=== PATIENT | male | born 1965 | race Caucasian/White ===

== ENCOUNTER 2022-10-04 10:53 | Emergency (ER) | payer BC ==
[~2022-10-04] VITALS: Ht 175.3 cm; Wt 81.8 kg
[2022-10-04 12:00] LABS: BASOPHILS % (AUTO) 0.3 % (0-1); EOSINOPHILS # (AUTO) 0.1 X10'3 (0-0.9); EOSINOPHILS % (AUTO) 1.4 % (0-6); HEMATOCRIT 47.8 % (42.0-52.0); HEMOGLOBIN 16.4 g/dl (14.0-17.9); LYMPHOCYTES # (AUTO) 1.1 X10'3 (1.1-4.8); LYMPHOCYTES % (AUTO) 10.8 % (21-51); MEAN CORPUSCULAR HEMOGLOBIN 32.6 PG (27.0-31.0); MEAN CORPUSCULAR HGB CONC 34.4 g/dL (33.0-36.5); MEAN PLATELET VOLUME 8.2 FL (7.4-10.4); MONOCYTES # (AUTO) 0.6 X10'3 (0-0.9); MONOCYTES % (AUTO) 5.9 % (2-12); NEUTROPHILS # (AUTO) 8.2 X10'3 (1.8-7.7); NEUTROPHILS % (AUTO) 81.6 % (42-75); PLATELET COUNT 184 X10'3 (140-440); RED BLOOD COUNT 5.03 X10'6 (4.70-6.10); RED CELL DISTRIBUTION WIDTH 13.8 % (11.5-14.5)
[2022-10-04] MEDS ORDERED: amox tr/potassium clavulanate 875/125mg TAB PO ONE (12:20)
[2022-10-04 12:24] LABS: ALANINE AMINOTRANSFERASE 31 U/L (12-78); ALBUMIN 3.5 G/DL (3.4-5.0); ALKALINE PHOSPHATASE 52 IU/L (46-116); ANION GAP 9 (8-16); ASPARTATE AMINO TRANSFERASE 18 U/L (10-37); BILIRUBIN,TOTAL 1.2 MG/DL (0.1-1.0); BLOOD UREA NITROGEN 9 MG/DL (7-18); BUN/CREATININE RATIO 10.8 (5.4-32.0); CALCIUM 8.9 MG/DL (8.5-10.1); CHLORIDE 100 MMOL/L (99-107); CREATININE 0.83 MG/DL (0.60-1.10); GLUCOSE 117 MG/DL (70-104); LIPASE 56 U/L (73-393); POTASSIUM 3.9 MMOL/L (3.5-5.1); SODIUM 133 MMOL/L (135-145); TOTAL CARBON DIOXIDE 23.9 MMOL/L (24-32); TOTAL PROTEIN 7.1 G/DL (6.4-8.2); eGFR > 90 ML/MIN
[2022-10-04] MEDS ORDERED: AMOX-580 PO (12:34)
[2022-10-04] MEDS ORDERED: DICY10CA88 PO (12:34)
[2022-10-04 12:54] VITALS: BP 135/99
== END 2022-10-04 13:10 | disposition home or self-care (01) ==
LOC: ER 10:54
DX: K57.92 Diverticulitis of intestine, part unspecified, without perforation or abscess without bleeding (principal)
CPT/HCPCS: 36415; 80053; 83690; 84145; 85025; 99283

== ENCOUNTER 2023-03-23 15:15 | Inpatient (IN) | payer BC ==
[~2023-03-23] VITALS: Ht 175.3 cm; Wt 82.6 kg
[2023-03-23] MEDS ORDERED: normal saline 1000ml 1,000 ML IV ONE ×2 (16:25→17:00)
[2023-03-23 16:39] LABS: BASOPHILS % (AUTO) 0.6 % (0-1); EOSINOPHILS % (AUTO) 0 % (0-6); HEMATOCRIT 49.9 % (42.0-52.0); HEMOGLOBIN 16.9 g/dl (14.0-17.9); LYMPHOCYTES # (AUTO) 1.2 X10'3 (1.1-4.8); LYMPHOCYTES % (AUTO) 21.3 % (21-51); MEAN CORPUSCULAR HEMOGLOBIN 31.9 PG (27.0-31.0); MEAN CORPUSCULAR HGB CONC 33.9 g/dL (33.0-36.5); MEAN CORPUSCULAR VOLUME 94.2 FL (78-98); MEAN PLATELET VOLUME 8.5 FL (7.4-10.4); MONOCYTES # (AUTO) 0.1 X10'3 (0-0.9); MONOCYTES % (AUTO) 2.2 % (2-12); NEUTROPHILS # (AUTO) 4.1 X10'3 (1.8-7.7); NEUTROPHILS % (AUTO) 75.9 % (42-75); PLATELET COUNT 208 X10'3 (140-440); RED CELL DISTRIBUTION WIDTH 12.2 % (11.5-14.5); WHITE BLOOD COUNT 5.4 X10'3 (4.5-11.0)
[2023-03-23 16:55] LABS: ALANINE AMINOTRANSFERASE 25 U/L (12-78); ALBUMIN 3.6 G/DL (3.4-5.0); ALKALINE PHOSPHATASE 50 IU/L (46-116); ANION GAP 17 (8-16); ASPARTATE AMINO TRANSFERASE 26 U/L (10-37); BILIRUBIN,TOTAL 0.4 MG/DL (0.1-1.0); BLOOD UREA NITROGEN 16 MG/DL (7-18); BUN/CREATININE RATIO 13.2 (10.0-20.0); CALCIUM 8.6 MG/DL (8.5-10.1); CHLORIDE 100 MMOL/L (99-107); CREATININE 1.21 MG/DL (0.60-1.10); GLUCOSE 155 MG/DL (70-104); LIPASE 76 U/L (73-393); POTASSIUM 4.3 MMOL/L (3.5-5.1); SODIUM 138 MMOL/L (135-145); TOTAL CARBON DIOXIDE 20.7 MMOL/L (24-32); TOTAL PROTEIN 7.1 G/DL (6.4-8.2); eGFR 62 ML/MIN
[2023-03-23] MEDS ORDERED: piperacillin/tazo 3.375gm/50ml 50 ML IV ONE (17:50)
[2023-03-23] MEDS ORDERED: ondansetron/PF 4mg/2ml inj IV ONE (18:05)
[2023-03-23] MEDS ORDERED: morphine 4 MG/ML inj SYRINge IV ONE (18:05)
[2023-03-23] MEDS ORDERED: ALBUTEROL (19:08)
[2023-03-23] MEDS ORDERED: DICY10CA88 PO (19:08)
[2023-03-23] MEDS ORDERED: LOSA50TA64 PO (19:08)
[2023-03-23] MEDS ORDERED: magnesium 2GM in 50ml NS 50 ML IV PRN (19:15)
[2023-03-23] MEDS ORDERED: magnesium 4gm in 100ml NS 100 ML IV PRN (19:15)
[2023-03-23] MEDS ORDERED: morphine 2 MG/ML inj. syringe IV PRN (19:15)
[2023-03-23] MEDS ORDERED: potassium Cl 40MEQ/1/2NS 520ml 520 ML IV PRN (19:15)
[2023-03-23] MEDS ORDERED: acetaminophen 325mg tablet PO PRN (19:15)
[2023-03-23] MEDS ORDERED: ondansetron/PF 4mg/2ml inj IV PRN (19:15)
[2023-03-23] MEDS ORDERED: ALBU17AE26 PO (19:40)
[2023-03-23] MEDS: normal saline 1000ml 1,000 ML IV SCH (19:46)
[2023-03-23] MEDS: K and/or MAG REPLACEMENT MC SCH (19:46)
--- NOTE | 2023-03-23 21:35 | NUR ---
Patient in room ED 13. I have received report from CARLOS A BINGHAM and had the opportunity to ask questions and assume patient care.
--- NOTE | 2023-03-23 21:52 | NUR ---
REPORT CALLED TO FLOOR PT TX TO ROOM 3008 BY NURSE
[2023-03-23] MEDS: morphine 2 MG/ML inj. syringe IV PRN (22:05)
[2023-03-23 22:16] LABS: CLARITY,URINE SLIGHTLY CLOUDY (Clear); COLOR,URINE YELLOW (Yellow); GLUCOSE, URINE NEGATIVE (Neg); KETONES,URINE 15 mg/dl (Neg); LEUKOCYTE ESTERASE ,URINE NEGATIVE (Neg); NITRITES, URINE NEGATIVE (Neg); OCCULT BLOOD,URINE NEGATIVE (Neg); PH,URINE 5.5 (4.8-8.0); PROTEIN,URINE TRACE mg/dl (Neg); UROBILINOGEN,URINE 0.2 E.U/dL (0.2-1.0)
[2023-03-23 22:39] LABS: UA COLLECTION TYPE URINAL
[2023-03-23 22:40] VITALS: BP 120/81
[2023-03-23 22:40] LABS: AMORPHOUS URATES 2+; BACTERIA,URINE NONE SEEN /HPF (Neg); MUCUS STRANDS MODERATE /LPF (Neg); RBC,URINE NONE SEEN /HPF (0-2); SQUAMOUS EPITHELIAL CELL,UR FEW /LPF (FEW); WBC,URINE 0-4 /HPF (0-4)
[2023-03-24] MEDS: piperacillin/tazo 3.375gm/50ml 50 ML IV SCH ×3 (01:19→16:46)
[2023-03-24 02:47] VITALS: BP 115/82
[2023-03-24] MEDS: morphine 2 MG/ML inj. syringe IV PRN ×4 (04:26→20:28)
[2023-03-24] MEDS: normal saline 1000ml 1,000 ML IV SCH ×2 (04:27→16:46)
[2023-03-24 06:00] VITALS: BP 122/80
[2023-03-24 06:11] LABS: BASOPHILS % (AUTO) 0.1 % (0-1); EOSINOPHILS % (AUTO) 0 % (0-6); HEMOGLOBIN 15.4 g/dl (14.0-17.9); LYMPHOCYTES # (AUTO) 0.5 X10'3 (1.1-4.8); MEAN PLATELET VOLUME 9.2 FL (7.4-10.4); NEUTROPHILS # (AUTO) 4.9 X10'3 (1.8-7.7); PLATELET COUNT 129 X10'3 (140-440); WHITE BLOOD COUNT 5.7 X10'3 (4.5-11.0)
[2023-03-24 06:14] LABS: LYMPHOCYTES % (AUTO) 9.3 % (21-51); MEAN CORPUSCULAR HEMOGLOBIN 32.7 PG (27.0-31.0); MEAN CORPUSCULAR HGB CONC 34.3 g/dL (33.0-36.5); MEAN CORPUSCULAR VOLUME 95.5 FL (78-98); MONOCYTES # (AUTO) 0.3 X10'3 (0-0.9); MONOCYTES % (AUTO) 4.8 % (2-12); NEUTROPHILS % (AUTO) 85.8 % (42-75); RED BLOOD COUNT 4.72 X10'6 (4.70-6.10)
--- NOTE | 2023-03-24 06:23 | NUR ---
Problems reprioritized. Patient report given, questions answered & plan of care reviewed with JIMENA SALAS.
[2023-03-24 06:26] LABS: ALANINE AMINOTRANSFERASE 20 U/L (12-78); ALBUMIN 2.9 G/DL (3.4-5.0); ALBUMIN/GLOBULIN RATIO 0.9 (1.1-1.5); ALKALINE PHOSPHATASE 30 IU/L (46-116); ANION GAP 13 (8-16); ASPARTATE AMINO TRANSFERASE 22 U/L (10-37); BILIRUBIN,TOTAL 0.5 MG/DL (0.1-1.0); BLOOD UREA NITROGEN 17 MG/DL (7-18); BUN/CREATININE RATIO 12.8 (10.0-20.0); CALCIUM 7.7 MG/DL (8.5-10.1); CHLORIDE 103 MMOL/L (99-107); CREATININE 1.33 MG/DL (0.60-1.10); GLUCOSE 115 MG/DL (70-104); MAGNESIUM 1.2 MG/DL (1.5-2.4); POTASSIUM 4.5 MMOL/L (3.5-5.1); SODIUM 139 MMOL/L (135-145); TOTAL CARBON DIOXIDE 23.5 MMOL/L (24-32); eGFR 55 ML/MIN
--- NOTE | 2023-03-24 06:33 | NUR ---
Patient in room PCU 3008. I have received report from Emily and had the opportunity to ask questions and assume patient care.
[2023-03-24] MEDS: K and/or MAG REPLACEMENT MC SCH ×2 (08:00→20:00)
[2023-03-24 11:00] VITALS: BP 135/73
--- NOTE | 2023-03-24 14:35 | NUR ---
Re: [place] in 3008, pt requesting respiratory tx, please advise Mackenzie
[2023-03-24 15:12] VITALS: BP 131/87
[2023-03-24 18:00] VITALS: BP 119/81
--- NOTE | 2023-03-24 18:02 | NUR ---
Problems reprioritized. Patient report given, questions answered & plan of care reviewed with Marco Ferreira
[2023-03-24] MEDS: heparin, porcine 5000 units/ml vial SQ SCH (19:24)
[2023-03-25 02:00] VITALS: BP 147/95
[2023-03-25] MEDS: piperacillin/tazo 3.375gm/50ml 50 ML IV SCH ×3 (03:00→17:41)
--- NOTE | 2023-03-25 05:38 | NUR ---
AGREE WITH IP PARALEGAL ASSESSMENTS
[2023-03-25 06:16] LABS: BASOPHILS % (AUTO) 0.2 % (0-1); EOSINOPHILS % (AUTO) 0 % (0-6); HEMATOCRIT 40.3 % (42.0-52.0); HEMOGLOBIN 13.6 g/dl (14.0-17.9); LYMPHOCYTES # (AUTO) 0.5 X10'3 (1.1-4.8); LYMPHOCYTES % (AUTO) 6.6 % (21-51); MEAN CORPUSCULAR HGB CONC 33.7 g/dL (33.0-36.5); MEAN CORPUSCULAR VOLUME 94.8 FL (78-98); MEAN PLATELET VOLUME 9.2 FL (7.4-10.4); MONOCYTES # (AUTO) 0.2 X10'3 (0-0.9); MONOCYTES % (AUTO) 2.8 % (2-12); NEUTROPHILS # (AUTO) 7.2 X10'3 (1.8-7.7); NEUTROPHILS % (AUTO) 90.4 % (42-75); PLATELET COUNT 115 X10'3 (140-440); RED BLOOD COUNT 4.25 X10'6 (4.70-6.10); RED CELL DISTRIBUTION WIDTH 11.9 % (11.5-14.5); WHITE BLOOD COUNT 7.9 X10'3 (4.5-11.0)
[2023-03-25 06:25] LABS: ALANINE AMINOTRANSFERASE 18 U/L (12-78); ALBUMIN 2.5 G/DL (3.4-5.0); ALBUMIN/GLOBULIN RATIO 0.8 (1.1-1.5); ALKALINE PHOSPHATASE 31 IU/L (46-116); ANION GAP 9 (8-16); ASPARTATE AMINO TRANSFERASE 27 U/L (10-37); BILIRUBIN,TOTAL 0.4 MG/DL (0.1-1.0); BLOOD UREA NITROGEN 16 MG/DL (7-18); BUN/CREATININE RATIO 16.5 (10.0-20.0); CALCIUM 8.2 MG/DL (8.5-10.1); CHLORIDE 103 MMOL/L (99-107); CREATININE 0.97 MG/DL (0.60-1.10); GLUCOSE 129 MG/DL (70-104); MAGNESIUM 1.9 MG/DL (1.5-2.4); POTASSIUM 4.2 MMOL/L (3.5-5.1); SODIUM 135 MMOL/L (135-145); TOTAL PROTEIN 5.8 G/DL (6.4-8.2); eGFR 79 ML/MIN
[2023-03-25 07:28] VITALS: BP 141/89
[2023-03-25] MEDS: K and/or MAG REPLACEMENT MC SCH ×2 (08:00→20:00)
[2023-03-25] MEDS: heparin, porcine 5000 units/ml vial SQ SCH ×3 (09:17→19:39)
[2023-03-25] MEDS: normal saline 1000ml 1,000 ML IV SCH ×3 (09:35→21:15)
[2023-03-25] MEDS: morphine 2 MG/ML inj. syringe IV PRN ×2 (09:35→23:28)
[2023-03-25 11:00] VITALS: BP 142/93
[2023-03-25 15:00] VITALS: BP 131/86
[2023-03-25 18:00] VITALS: BP 143/101
--- NOTE | 2023-03-25 18:42 | NUR ---
Gave report to Anahy SALAS.
--- NOTE | 2023-03-25 18:42 | NUR ---
Gave report to Marco SALAS.
--- NOTE | 2023-03-25 21:40 | NUR ---
NS NOT NEEDED D/T CHF AND SALINE LOCK FOR NOW.
[2023-03-26] VITALS (7 sets, daily range): BP systolic 130–176; BP diastolic 77–108
[2023-03-26] MEDS: piperacillin/tazo 3.375gm/50ml 50 ML IV SCH ×3 (01:46→17:16)
[2023-03-26] MEDS: normal saline 1000ml 1,000 ML IV SCH (07:15)
[2023-03-26 07:19] LABS: BASOPHILS % (AUTO) 0.1 % (0-1); EOSINOPHILS % (AUTO) 0 % (0-6); HEMATOCRIT 39.5 % (42.0-52.0); HEMOGLOBIN 13.5 g/dl (14.0-17.9); LYMPHOCYTES # (AUTO) 0.4 X10'3 (1.1-4.8); LYMPHOCYTES % (AUTO) 8.1 % (21-51); MEAN CORPUSCULAR HEMOGLOBIN 32.2 PG (27.0-31.0); MEAN CORPUSCULAR HGB CONC 34.1 g/dL (33.0-36.5); MEAN CORPUSCULAR VOLUME 94.4 FL (78-98); MEAN PLATELET VOLUME 9.7 FL (7.4-10.4); MONOCYTES # (AUTO) 0.3 X10'3 (0-0.9); MONOCYTES % (AUTO) 5.9 % (2-12); NEUTROPHILS # (AUTO) 4.3 X10'3 (1.8-7.7); NEUTROPHILS % (AUTO) 85.9 % (42-75); PLATELET COUNT 138 X10'3 (140-440); RED BLOOD COUNT 4.19 X10'6 (4.70-6.10); RED CELL DISTRIBUTION WIDTH 11.8 % (11.5-14.5)
[2023-03-26 07:37] LABS: ALANINE AMINOTRANSFERASE 19 U/L (12-78); ALBUMIN 2.1 G/DL (3.4-5.0); ALBUMIN/GLOBULIN RATIO 0.6 (1.1-1.5); ALKALINE PHOSPHATASE 30 IU/L (46-116); ANION GAP 12 (8-16); ASPARTATE AMINO TRANSFERASE 26 U/L (10-37); BILIRUBIN,TOTAL 0.6 MG/DL (0.1-1.0); BLOOD UREA NITROGEN 13 MG/DL (7-18); BUN/CREATININE RATIO 15.9 (10.0-20.0); CALCIUM 8.1 MG/DL (8.5-10.1); CHLORIDE 101 MMOL/L (99-107); CREATININE 0.82 MG/DL (0.60-1.10); GLUCOSE 135 MG/DL (70-104); MAGNESIUM 1.7 MG/DL (1.5-2.4); POTASSIUM 3.5 MMOL/L (3.5-5.1); SODIUM 133 MMOL/L (135-145); TOTAL PROTEIN 5.8 G/DL (6.4-8.2); eGFR > 90 ML/MIN
[2023-03-26] MEDS: K and/or MAG REPLACEMENT MC SCH ×2 (08:00→20:00)
[2023-03-26] MEDS: heparin, porcine 5000 units/ml vial SQ SCH ×2 (08:00→20:04)
--- NOTE | 2023-03-26 11:02 | NUR ---
Per pt. told him to remove monitoring manager and that he didnt need it. Paged to clarify. PAGER ID: [phone] MESSAGE: To Dr. Malave - Can you please call me? Several questions different pts. Dian [id number]
[2023-03-26] MEDS ORDERED: LEVO-65 PO (12:26)
[2023-03-26] MEDS ORDERED: METR-159 PO (12:26)
--- NOTE | 2023-03-26 15:05 | NUR ---
PAGER ID: [phone] MESSAGE: Sergio Mejiasae [id number] Pt. BP 170/108 HR 85. Rechecked. Continue home Losartan? 50mg? PRN hydralazine? Pt. also wants something to sleep tonight- takes advil PM at home. This will make him happy. Dian 1957
[2023-03-26] MEDS ORDERED: LOSA25TA96 PO (15:28)
[2023-03-26] MEDS: losartan 50mg tablet PO SCH (15:55)
--- NOTE | 2023-03-26 17:23 | NUR ---
promotional table spacer promotional table spacer PAGER ID: [phone] MESSAGE: Sergio Mejiasae 3008 BP 170/101 hr 85 Losartan med already given. Pt. also wants Malox order. Please advise. Dian [id number]
[2023-03-26] MEDS: hydrALAZINE 20mg/ml inj. IV PRN ×2 (17:39→20:03)
--- NOTE | 2023-03-26 19:04 | NUR ---
Report given to Ava SALAS.
[2023-03-26] MEDS ORDERED: calcium carbonate 500mg chew tablet PO PRN (20:15)
[2023-03-26] MEDS ORDERED: Melatonin 3mg tablet PO SCH (21:00)
[2023-03-27] MEDS: piperacillin/tazo 3.375gm/50ml 50 ML IV SCH ×2 (01:23→08:37)
[2023-03-27 03:00] VITALS: BP 171/104
[2023-03-27] MEDS: hydrALAZINE 20mg/ml inj. IV PRN ×2 (03:34→08:37)
[2023-03-27] MEDS: calcium carbonate 500mg chew tablet PO PRN ×2 (03:35→11:12)
--- NOTE | 2023-03-27 06:24 | NUR ---
Patient report given, questions answered & plan of care reviewed with MARITZA Menendez
[2023-03-27 06:59] LABS: BASOPHILS % (AUTO) 0 % (0-1); EOSINOPHILS % (AUTO) 0 % (0-6); HEMATOCRIT 39.6 % (42.0-52.0); HEMOGLOBIN 13.7 g/dl (14.0-17.9); LYMPHOCYTES # (AUTO) 0.5 X10'3 (1.1-4.8); LYMPHOCYTES % (AUTO) 8.1 % (21-51); MEAN CORPUSCULAR HEMOGLOBIN 32.3 PG (27.0-31.0); MEAN CORPUSCULAR HGB CONC 34.6 g/dL (33.0-36.5); MEAN CORPUSCULAR VOLUME 93.4 FL (78-98); MEAN PLATELET VOLUME 9.5 FL (7.4-10.4); MONOCYTES # (AUTO) 0.4 X10'3 (0-0.9); MONOCYTES % (AUTO) 6.5 % (2-12); NEUTROPHILS # (AUTO) 5.8 X10'3 (1.8-7.7); NEUTROPHILS % (AUTO) 85.4 % (42-75); PLATELET COUNT 143 X10'3 (140-440); RED BLOOD COUNT 4.24 X10'6 (4.70-6.10); RED CELL DISTRIBUTION WIDTH 11.9 % (11.5-14.5); WHITE BLOOD COUNT 6.8 X10'3 (4.5-11.0)
[2023-03-27 07:12] LABS: ALANINE AMINOTRANSFERASE 23 U/L (12-78); ALBUMIN/GLOBULIN RATIO 0.5 (1.1-1.5); ALKALINE PHOSPHATASE 45 IU/L (46-116); ANION GAP 9 (8-16); ASPARTATE AMINO TRANSFERASE 31 U/L (10-37); BILIRUBIN,TOTAL 0.6 MG/DL (0.1-1.0); BLOOD UREA NITROGEN 11 MG/DL (7-18); BUN/CREATININE RATIO 15.3 (10.0-20.0); CALCIUM 8.6 MG/DL (8.5-10.1); CHLORIDE 101 MMOL/L (99-107); CREATININE 0.72 MG/DL (0.60-1.10); GLUCOSE 109 MG/DL (70-104); MAGNESIUM 1.6 MG/DL (1.5-2.4); POTASSIUM 3.3 MMOL/L (3.5-5.1); SODIUM 135 MMOL/L (135-145); TOTAL CARBON DIOXIDE 24.6 MMOL/L (24-32); TOTAL PROTEIN 5.8 G/DL (6.4-8.2); eGFR > 90 ML/MIN
[2023-03-27] MEDS: losartan 50mg tablet PO SCH (08:36)
[2023-03-27 08:37] VITALS: BP_SYST 170
[2023-03-27] MEDS: heparin, porcine 5000 units/ml vial SQ SCH (08:37)
[2023-03-27] MEDS ORDERED: potassium Cl 20 mEq SR tablet PO STA (10:42)
--- NOTE | 2023-03-27 14:57 | NUR ---
Pt stable for discharge per Dr. Malave and Eve. All discharge instructions reviewed with patient and all questions answered, pt verbalized understanding. New meds e-scripted to [facility] on [place]. PIV discontinued, cannula intact. Tele discontinued. All belongings collected and sent with patient. Wheeled to lobby via nursing staff and picked up by spouse.
== END 2023-03-27 13:13 | disposition home or self-care (01) | DRG 391 ==
LOC: ER 15:15 → ED HOLD 19:15 → PCU 3S 21:45
PROVIDERS: ADMIT Internal Medicine; ATTEND Internal Medicine
DX: K57.20 Diverticulitis of large intestine with perforation and abscess without bleeding (principal); U07.1 COVID-19; I10 Essential (primary) hypertension; Z79.899 Other long term (current) drug therapy
CPT/HCPCS: 36415; 71045; 74176; 80053; 81001; 83605; 83690; 83735; 84145; 85025; 87040; 87081; 87811; 99285; G0378; J0360; J1644; J2270; J2405; J2543; J3475; J7030; J7040

== ENCOUNTER 2023-09-03 05:17 | Inpatient (IN) | payer BC ==
[2023-08-27 15:36] LABS: BILIRUBIN,URINE NEGATIVE (Neg); CLARITY,URINE CLEAR (Clear); COLOR,URINE YELLOW (Yellow); GLUCOSE, URINE NEGATIVE (Neg); KETONES,URINE NEGATIVE (Neg); LEUKOCYTE ESTERASE ,URINE NEGATIVE (Neg); NITRITES, URINE NEGATIVE (Neg); OCCULT BLOOD,URINE NEGATIVE (Neg); PH,URINE 6.5 (4.8-8.0); PROTEIN,URINE NEGATIVE (Neg); UROBILINOGEN,URINE 0.2 E.U/dL (0.2-1.0)
[2023-08-27 15:39] LABS: BASOPHILS % (AUTO) 0.4 % (0-1); EOSINOPHILS # (AUTO) 0.1 X10'3 (0-0.9); EOSINOPHILS % (AUTO) 1.1 % (0-6); LYMPHOCYTES # (AUTO) 1.5 X10'3 (1.1-4.8); LYMPHOCYTES % (AUTO) 19.5 % (21-51); MEAN CORPUSCULAR HEMOGLOBIN 29.3 PG (27.0-31.0); MEAN CORPUSCULAR HGB CONC 33.6 g/dL (33.0-36.5); MEAN CORPUSCULAR VOLUME 87.2 FL (78-98); MEAN PLATELET VOLUME 8.7 FL (7.4-10.4); MONOCYTES # (AUTO) 0.4 X10'3 (0-0.9); MONOCYTES % (AUTO) 5.7 % (2-12); NEUTROPHILS # (AUTO) 5.8 X10'3 (1.8-7.7); NEUTROPHILS % (AUTO) 73.3 % (42-75); PRE OP HEMOGLOBIN 14.1 g/dL (14.0-17.9); PRE OP PLATELET COUNT 206 X10'3 (140-440); PRE OP WHITE BLOOD COUNT 7.9 10'3 (4.8-10.8); RED BLOOD COUNT 4.82 X10'6 (4.70-6.10); RED CELL DISTRIBUTION WIDTH 15.4 % (11.5-14.5)
[2023-08-27 15:41] LABS: UA COLLECTION TYPE CLN CATCH MIDSTREAM
[2023-08-27 15:48] LABS: BLOOD UREA NITROGEN 13 MG/DL (7-18); BUN/CREATININE RATIO 12.4 (10.0-20.0); CALCIUM 9.1 MG/DL (8.5-10.1); CHLORIDE 100 MMOL/L (99-107); CREATININE 1.05 MG/DL (0.60-1.10); PRE OP ANION GAP 7 (8-16); PRE OP BILIRUB, TOTAL 0.5 MG/DL (0.0-1.0); PRE OP GLUCOSE 104 MG/DL (70-104); PRE OP POTASSIUM 3.9 MMOL/L (3.4-5.1); PRE OP SODIUM 137 MMOL/L (135-145); TOTAL CARBON DIOXIDE 29.8 MMOL/L (24-32); eGFR 72 ML/MIN
[2023-08-27 15:49] LABS: ALBUMIN 3.7 G/DL (3.4-5.0); ALBUMIN/GLOBULIN RATIO 1.1 (1.1-1.5); ALKALINE PHOSPHATASE 58 IU/L (46-116); PRE OP ALT 18 U/L (30-65); PRE OP AST 16 U/L (10-37); TOTAL PROTEIN 7.2 G/DL (6.4-8.2)
[~2023-09-03] VITALS: Ht 175.3 cm; Wt 86.2 kg
[2023-09-03] VITALS (31 sets, daily range): BP systolic 125–161; BP diastolic 77–113; PULSE 77–110; RESP 14–23; TEMP 97.4–98.3; O2SAT 95–100
[~2023-09-03 05:17] MED LIST: LOSA50TA64 PO; MULT-1085 PO; TRACE MINERAL; ringers solution, lacted 1,000 ML IV SCH
[2023-09-03] MEDS ORDERED: famotidine 20mg tablet PO ONE (05:30)
[2023-09-03] MEDS ORDERED: ceFOXitin 2GM-NS 100mL ADDvant 100 ML IV ONE (05:30)
[2023-09-03] MEDS ORDERED: midazolam 1 mg/ML 2ml injection ONE ×2 (07:13→07:14)
[2023-09-03] MEDS ORDERED: fentaNYL /PF 50mcg/ml 5ml ampule ONE (07:14)
[2023-09-03] MEDS ORDERED: propofol inj 20 ML IV ONE (07:14)
[2023-09-03] MEDS ORDERED: iohexol 300 MG/1 ML 50ml polymer ONE (07:14)
[2023-09-03] MEDS ORDERED: rocuronium 10mg/ml inj IV ONE ×2 (07:18→07:32)
[2023-09-03] MEDS ORDERED: morphine 4 MG/ML inj SYRINge IV PRN (07:25)
[2023-09-03] MEDS ORDERED: meperidine/PF 25mg/ml syringe IV PRN ×3 (07:25)
[2023-09-03] MEDS ORDERED: ondansetron/PF 4mg/2ml inj IV PRN ×2 (07:25→07:35)
[2023-09-03] MEDS ORDERED: ringers solution, lacted 1,000 ML IV SCH (07:25)
[2023-09-03] MEDS ORDERED: morphine 2 MG/ML inj. syringe IV PRN (07:25)
[2023-09-03] MEDS ORDERED: proCHLORperazine 10 MG/2 ml inj IV PRN (07:25)
[2023-09-03] MEDS ORDERED: dexamethasone sod phosphate 10mg/ml inj ONE (07:32)
[2023-09-03] MEDS ORDERED: sevoflurane 250ml liquid IH ONE (07:32)
[2023-09-03] MEDS ORDERED: naloxone 0.4 mg/ml inj IV PRN (07:35)
[2023-09-03] MEDS ORDERED: Potassium Cl inj 20 MEQ in ringers solution, lacted 1,000 ML IV SCH (07:35)
[2023-09-03] MEDS: docusate sod 100mg capsule PO SCH ×3 (08:00→21:00)
[2023-09-03] MEDS ORDERED: ePHEDrine 50MG/ML INJ. ONE (08:19)
[2023-09-03] MEDS ORDERED: fentaNYL/PF 50MCG/1 ML 2ML syringe ONE (09:37)
[2023-09-03] MEDS ORDERED: acetaminophen 1,000mg/100ml IV 100 ML IV ONE (09:51)
[2023-09-03] MEDS ORDERED: ondansetron/PF 4mg/2ml inj ONE (10:12)
[2023-09-03] MEDS ORDERED: sugammadex 200mg/2ml injection IV ONE (10:26)
[2023-09-03] MEDS: HYDROmorph/NS 0.2 mg/ml PCA 100 ML IV SCH ×6 (11:39→23:00)
[2023-09-03] MEDS ORDERED: losartan 25mg tablet PO ONE (18:00)
[2023-09-03] MEDS: ringers solution, lacted 1,000 ML IV SCH ×2 (19:00→23:43)
[2023-09-04] VITALS (10 sets, daily range): BP systolic 122–150; BP diastolic 71–102; PULSE 88–104; RESP 14–19; TEMP 96.9–97.8; O2SAT 93–98
[2023-09-04] MEDS: HYDROmorph/NS 0.2 mg/ml PCA 100 ML IV SCH ×12 (01:00→23:00)
[2023-09-04] MEDS: losartan 25mg tablet PO SCH (08:52)
[2023-09-04] MEDS: docusate sod 100mg capsule PO SCH ×2 (08:54→20:00)
[2023-09-04] MEDS ORDERED: famotidine 20mg tablet PO ONE (09:05)
[2023-09-04] MEDS: ringers solution, lacted 1,000 ML IV SCH ×3 (09:56→22:30)
[2023-09-04] MEDS ORDERED: albuterol 2.5 MG/3 ML nebule ONE (10:41)
[2023-09-04] MEDS ORDERED: albuterol 2.5 MG/3 ML nebule NEB PRN (10:55)
[2023-09-04] MEDS: enoxaparin 40mg/0.4ml syringe SUBCUT SCH (17:18)
[2023-09-04] MEDS ORDERED: famotidine 20mg tablet PO PRN (18:15)
[2023-09-05] VITALS (7 sets, daily range): BP systolic 126–145; BP diastolic 80–92; PULSE 86–107; RESP 16–18; TEMP 97.6–99.5; O2SAT 95–100
[2023-09-05] MEDS: HYDROmorph/NS 0.2 mg/ml PCA 100 ML IV SCH ×12 (01:00→23:00)
[2023-09-05] MEDS: ringers solution, lacted 1,000 ML IV SCH ×3 (07:40→17:05)
[2023-09-05] MEDS: docusate sod 100mg capsule PO SCH ×2 (07:49→19:40)
[2023-09-05] MEDS: losartan 25mg tablet PO SCH (07:49)
[2023-09-05] MEDS: enoxaparin 40mg/0.4ml syringe SUBCUT SCH (07:50)
[2023-09-05] MEDS ORDERED: PCA WASTE DOCUMENTATION 1 MG ML MC SCH (12:50)
[2023-09-06] MEDS: HYDROmorph/NS 0.2 mg/ml PCA 100 ML IV SCH ×6 (01:00→11:00)
[2023-09-06] MEDS: ringers solution, lacted 1,000 ML IV SCH ×2 (01:42→08:13)
[2023-09-06 06:00] VITALS: BP 138/79; PULSE 69; RESP 16; TEMP 97.4; O2SAT 97
[2023-09-06] MEDS: losartan 25mg tablet PO SCH (07:55)
[2023-09-06] MEDS: enoxaparin 40mg/0.4ml syringe SUBCUT SCH (07:57)
[2023-09-06 08:00] VITALS: RESP 16; O2SAT 97
[2023-09-06] MEDS: docusate sod 100mg capsule PO SCH (08:13)
[2023-09-06 10:37] VITALS: BP 138/95; PULSE 88; RESP 16; TEMP 98; O2SAT 98
[2023-09-06 11:00] VITALS: RESP 16
== END 2023-09-06 12:25 | disposition home or self-care (01) | DRG 330 ==
LOC: PAS IN 05:17 → UNDOADMIN 05:17 → PAS IN 09:47 → ORTHO 4S 13:30 → PAS IN 13:30 → ORTHO 4S 15:39 → PAS IN 15:39
PROVIDERS: ADMIT Surgery; ATTEND Surgery
PROC: 0T9880Z Drainage of Bilateral Ureters with Drainage Device, Via Natural or Artificial Opening Endoscopic (ICD-10-PCS; principal; 2023-09-03 07:32)
PROC: 0DBL0ZZ Excision of Transverse Colon, Open Approach (ICD-10-PCS; 2023-09-03 07:32)
DX: Z43.3 Encounter for attention to colostomy (principal); K57.92 Diverticulitis of intestine, part unspecified, without perforation or abscess without bleeding; N40.0 Benign prostatic hyperplasia without lower urinary tract symptoms; K66.0 Peritoneal adhesions (postprocedural) (postinfection); I10 Essential (primary) hypertension; Z79.899 Other long term (current) drug therapy; Z90.49 Acquired absence of other specified parts of digestive tract
CPT/HCPCS: Z7506; Z7508; 36415; 76000; 80053; 81003; 82948; 85025; 86885; 86900; 86901; 87081; 94640; 94760; A4615; A4618; A6258; A6449; A7000; C1758; C1769; G0378; J0131; J0694; J0780; J1100; J1170; J1650; J2250; J2270; J2405; J2704; J3010; J3490; J7120; Q9967